=== PATIENT | male | born 1995 | race Caucasian/White ===

== ENCOUNTER 2021-12-28 11:57 | Emergency (ER) | payer OTHER ==
[2021-12-28 13:19] LABS: RED BLOOD COUNT 5.01 M/UL (4.20-5.50); WHITE BLOOD COUNT 7.4 K/UL (4.5-11.0)
[2021-12-28 13:48] LABS: BUN/CREATININE RATIO 17 (0-10)
== END 2021-12-28 17:01 | disposition home or self-care (01) ==
LOC: ER1 11:57
PROVIDERS: Physician Assistant
DX: R55 Syncope and collapse (principal); F17.200 Nicotine dependence, unspecified, uncomplicated; R06.02 Shortness of breath; M79.603 Pain in arm, unspecified; H53.8 Other visual disturbances
CPT/HCPCS: 71045; 80053; 82550; 82553; 84484; 85025; 85379; 93005; 99285; Q9967